=== PATIENT | female | born 1970 | race Caucasian/White ===

== ENCOUNTER 2022-08-25 18:39 | Emergency (ER) | payer OTHER ==
[2022-08-25] MEDS ORDERED: DIPHTH,PERTUSS(ACELL),TET 0.5 ML DISP.SYRIN IM ONE ×2 (19:10→19:23)
[2022-08-25] MEDS ORDERED: SULFAMETHOXAZOLE/TRIMETHOPRIM 800MG/160MG D.S. TABLET ONE (19:17)
[2022-08-25] MEDS ORDERED: SULFAMETHOXAZOLE/TRIMETHOPRIM 800MG/160MG D.S. TABLET PO ONE (19:22)
[2022-08-25 19:31] VITALS: BP 114/75; PULSE 78; RESP 16; TEMP 98; BMI 21.6
== END 2022-08-25 19:30 | disposition home or self-care (01) ==
LOC: FER 18:39
PROC: 3E0234Z Introduction of Serum, Toxoid and Vaccine into Muscle, Percutaneous Approach (ICD-10-PCS; principal; 2022-08-25)
DX: S61.412A Laceration without foreign body of left hand, initial encounter (principal); W27.2XXA Contact with scissors, initial encounter
CPT/HCPCS: 90715; 99284-25